=== PATIENT | male | born 1950 | race Caucasian/White ===

== ENCOUNTER 2022-03-03 07:21 | Outpatient (CLI) | payer MEDICARE, BC, SELFPAY ==
[2022-03-03 10:33] LABS: Albumin* 4.7 g/dL (3.3-5.0); Chloride* 106 mmol/L (96-114); Potassium* 4.1 mmol/L (3.6-5.1); Sodium* 139 mmol/L (135-149)
[2022-03-03 10:35] LABS: Aspartate Amino Transferase* 32 U/L (12-35); Carbon Dioxide* 25 mmol/L (20-32); Creatinine* 1.1 mg/dL (0.5-1.5); Estimated Glomerular Filt Rate 71 ml/min; Total Protein* 7.1 g/dL (6.0-8.3)
[2022-03-03 10:36] LABS: Alanine Aminotransferase* 36 U/L (4-50); Alkaline Phosphatase* 69 U/L (40-150); Blood Urea Nitrogen* 17 mg/dL (7-30); Calcium* 9.4 mg/dL (8.4-10.6); Glucose* 155 mg/dL (60-115); HDL Cholesterol* 41 mg/dL (>=40); Triglycerides* 202 mg/dL (40-149)
[2022-03-03 11:03] LABS: Creatinine Urine 273.1 mg/dL; PSA Screen* 0.48 ng/mL (0.10-4.00)
[2022-03-03 11:50] LABS: Microalbumin Creatinine Ratio 10 mg/g (0-30); Microalbumin Urine 4 mg/dL
[2022-03-04 18:56] LABS: Cholesterol* 152 mg/dL (90-199); LDL Cholesterol Calculated 71 mg/dL (<100)
== END 2022-03-03 07:22 | disposition home or self-care (01) ==
PROVIDERS: PCP Family Medicine; Visit Provider Family Medicine
DX: Z00.00 Encounter for general adult medical examination without abnormal findings (principal); E78.5 Hyperlipidemia, unspecified; I10 Essential (primary) hypertension; E11.9 Type 2 diabetes mellitus without complications; E66.9 Obesity, unspecified; Z12.5 Encounter for screening for malignant neoplasm of prostate
CPT/HCPCS: 80053; 80061; 82043; 82570; 84153

== ENCOUNTER 2023-03-03 07:57 | Outpatient (CLI) | payer MEDICARE, BC, SELFPAY ==
--- OUTSIDE RECORDS SUMMARY | 2023-03-10 13:21 | XMS_ITS | Continuity of Care Document ---
Author Name Unknown Organization [facility] Address [address] [place] [address] Phone Care Team Providers Care Surgical Dressing Maker Name Role Phone Renée Montgomery MD Unavailable Unavailable Procedures Procedure Date Office/outpatient visit,est, mod 2010 Advance Directives Directive Yes / No Effective Date File Name No Information Encounters Encounter Description Practice Location Reason(s) For Visit Diagnoses Date Provider Providers Copied on Encounter [facility], [address], [place], [place], [id number], [place] tel:[phone] [facility] No Information Mehbod Amir. [facility] [place], [address] [place] [address], [id number], [place]. tel:[phone] Office/outpat ient visit,est, mod Z [facility] [place], [address] [place], [place] [address], [facility], tel:[phone] [facility] No Information Transfeldt Ensor. [facility] [place], [address] [place] [address], [address], [id number], [place]. tel:[phone] Referring Provider: Willem Gonzalez, [address], [address]. tel:[phone] Family History Family Member Type Diagnosis Age At Onset No Information Payers Payer name Insurance type Covered green party ID Authoriza tion(s) No Information Social History Type Description Quantity Date Captured Comments Sex Male Smoking Status No Information Chief Complaint And Reason For Visit No Information Reason For Referral Reason For Referral No Information History Of Present Illness Encounter Date Complaint History Of Prese nt Illness No Information Functional Status Date Functional Assessmen t No Information Instructions Date Instruction Additional Infor mation No Information Assessments Type Assessment Date No Information Patient Care Teams Name Effective Dates (start - stop) Status Members No Information
--- OUTSIDE RECORDS SUMMARY | 2023-03-10 13:21 | XMS_ITS | Clinical Summary ---
Author Name Unknown Organization [employer] [facility] Address [place], [place] [address] Care Team Providers Care Color Straining Bag Washer Name Role Phone Santos Seth MD Primary Care Provider [phone] Allergies Active Allergy Reactions Criticality Noted Date Comments Penicillins 07/23/2006 Medications Medication Sig Dispensed Refills Start Date End Date Status ALEVE 220 MG TAB take 1 tablet (220 mg) by oral route every 12 hours as needed 0 07/23/2006 Active GLUCOSAMINE-CHONDROIT IN 500 MG-400 MG CAP 0 07/27/2007 Acti ve ACETAMINOPHEN 325 MG TAB take 1 tablet (650 mg) by oral route every 8 hours as needed 0 07/27/2007 Active ASPIRIN 81 MG TAB, DELAYED RELEASE take 1 tablet (81 mg) by oral route once daily 0 07/27/2007 Active NEURONTIN 300 MG CAP take 1 capsule (300 mg) by oral route qhs prn 30 3 07/27/2007 Active simvastatin (ZOCOR) 20 mg tablet Take 1 tablet by mouth at bedtime. 0 02/19/2010 Active multivitamin (MVI) tablet Take 1 tablet by mouth once daily. 0 07/20/2016 Active traMADol (ULTRAM) 50 mg tabletIndications:Cer vical radicular pain Take 1 tablet by mouth every 6 hours if needed for Pain. 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 07/23/2006 Immunizations Name Administration Dates Next Due AMB INFLUENZA IIV3 (AGE 65+ YRS) PF (Flu Clinic Only) 12/20/2018 AMB Influenza, IIV3 (Age >=3 years)(Flu Clinic Only) 12/16/2011,12/22/2010,12/26/2009,2008,01/03/2008 AMB Influenza, IIV4 PF (=>6 mos Flulaval,Fluzone Fluarix)(Flu Clinic Only) 12/13/2014,12/13/2013 Amb Influenza, Inact (High-d ose) (Flu Clinic Only) 12/09/2015 Amb Influenza, Inactivated A IIV4 (Age 65+ Years) Preserv Free 11/15/2019 Influenza, IIV3 (Age >=3 years) 12/15/2012,01/06 Influenza, Inactivated AIIV4 (Age 65+ Years) Preserv Free 12/25/2020 Influenza, Inactivated IIV3 (Age 65+ Years) Preserv Free 12/13/2017,12/08/2016 Td (Age >=7 Years) 03/12/2005 Family History Medical History Relation Name Comments Heart Disease Brother x 2 Diabetes Father ? Heart Disease Father [place] age 64 Diabetes Mother Relation Name Status Comments Brother Father (Age 87) Mother (Age 87) Social History Tobacco Use Types Packs/Day Years Used Date Smoking Tobacco: Former Cigarettes Q uit: 03/01/1999 Smokeless Tobacco: Never Tobacco Cessation:Counseling Given: Yes Alcohol Use Standard Drinks/Week Comments Yes 5 (1 standard drink = 0.6 oz pur e alcohol) wine Sex and Gender Information Value Date Recorded Sex Assigned at Not on file Gender Identity Not on file Sexual Orientation Not on file Obstetrics History Last Filed Vital Signs Vital Sign Reading Time Taken Comments Blood Pressure 139/76 07/20/2016 7:42 AM CDT Pulse 63 07/20/2016 7:42 AM CDT Temperature 36.4 ??C (97.5 ??F) 07/20/2016 7:42 AM CD T Respiratory Rate - - Oxygen Saturation 95% 07/20/2016 7:42 AM CDT Inhaled Oxygen Concentration - - Weight 103.9 kg (229 lb) 07/20/2016 7:42 AM CDT Height - - Body Mass Index - - Plan of Treatment Health Maintenance Due Date Last Done Comments Tdap 02/12/1960 Depression screening for age 12+ 1961 BMI (ht and wt on same day) for age 18+ 1967 Hepatitis C screening for ag e 18-79 1967 Colonoscopy through age 75 1994 Lipids for age 45-75 1994 Zoster (shingles) series for age 50+ (1 of 2) 1999 Medicare Wellness for age 65+ 2014 Pneumococcal series for age 65+ (1 of 1 - PCV) 2014 Tetanus booster 03/12/2015 03/12/2005 COVID-19 vaccine series (2022-24 season) 2022 12/26/2020, 05/31/2020, 05/01/2020 Influenza for age 65+ 10/30/2022 12/25/2020 , 11/15/2019, 12/20/2018, Additional history exists Care Teams Color Straining Bag Washer Relationship Specialty Start Date End Date Santos Seth MD [address] [place] [address] PCP - General Family Practice 07/20/16
== END 2023-03-03 07:58 | disposition home or self-care (01) ==
LOC: NFLDREF 03-10 13:10
PROVIDERS: PCP Family Medicine; Referring Provider Family Medicine; Visit Provider Family Medicine
DX: R73.03 Prediabetes (principal); E11.9 Type 2 diabetes mellitus without complications; I10 Essential (primary) hypertension; E66.9 Obesity, unspecified; E78.5 Hyperlipidemia, unspecified
CPT/HCPCS: 80053; 80061; 82043; 82570

== ENCOUNTER 2023-03-18 06:48 | Outpatient (CLI) | payer MEDICARE, BC, SELFPAY ==
--- OUTSIDE RECORDS SUMMARY | 2023-03-18 06:51 | XMS_ITS | Clinical Summary ---
Author Name Unknown Organization [employer] [facility] Address [place], [place] [address] Care Team Providers Care Release Of Information Clerk Name Role Phone Santos Seth MD Primary Care Provider [phone] Allergies Active Allergy Reactions Criticality Noted Date [...] 2 Diabetes Father ? Heart Disease Father [place] age 64 Diabetes Mother Relation Name Status [...] 11/15/2019, 12/20/2018, Additional history exists Care Teams Release Of Information Clerk Relationship Specialty Start Date End Date Santos Seth MD [address] [place] [address] PCP - General Family Practice 07/20/16
--- OUTSIDE RECORDS SUMMARY | 2023-03-18 06:51 | XMS_ITS | Continuity of Care Document ---
Author Name Unknown Organization [facility] Address [address] [place] [address] Phone Care Team Providers Care Orange Picker Name Role Phone Renée Montgomery MD Unavailable Unavailable Procedures Procedure Date Office/outpatient visit,est, mod 2010 Advance Directives Directive Yes / No Effective Date File Name No Information Encounters Encounter Description Practice Location Reason(s) For Visit Diagnoses Date Provider Providers Copied on Encounter [facility], [address], [place], [place], [id number], [place] tel:[phone] [facility] No Information Mehbod Amir. [facility] [place], [address] [place] [address], [id number], [place]. tel:[phone] Office/outpat ient visit,est, mod Z [facility] [place], [address] [place], [place] [address], [facility], tel:[phone] [facility] No Information Transfeldt Ensor. [facility] [place], [address] [place] [address], [address], [id number], [place]. tel:[phone] Referring Provider: Willem Kaur, [address], [place], [address]. tel:[phone] Family History Family Member Type Diagnosis Age [...]
--- NOTE | 2023-03-18 07:15 | CRLHL7_ITS ---
For Patients: As a result of the Cures Act, medical imaging exams and procedure reports are released immediately into your electronic medical record. You may view this report before your referring provider. If you have questions, please contact your health care provider. Examination: US abdominal aorta Indication: Abdominal aortic aneurysm screening. Technique: Guerrier scale and color Doppler images of the aorta and common iliac arteries are obtained. Comparison: None Findings: Proximal aorta: 2.0 x 2.3 cm Mid aorta: 1.5 x 2.3 cm Distal aorta: 1.6 x 2.0 cm Right common iliac artery: 1.1 x 1.6 cm Left common iliac artery: 1.0 x 1.5 cm Impression: No abdominal aortic aneurysm. Dictated by Jose Rodriguez MD @ 03/18/2023 9:11:05 AM (Electronically Signed)
== END 2023-03-18 06:49 | disposition home or self-care (01) ==
LOC: US 06:50
PROVIDERS: PCP Family Medicine; Visit Provider Family Medicine
DX: Z13.6 Encounter for screening for cardiovascular disorders (principal)
CPT/HCPCS: 76706

== ENCOUNTER 2023-06-07 08:23 | Outpatient (CLI) | payer MEDICARE, BC, SELFPAY ==
--- OUTSIDE RECORDS SUMMARY | 2023-06-15 07:20 | XMS_ITS | Clinical Summary ---
Author Name Unknown Organization [employer] [facility] Address [place], [place] [address] Care Team Providers Care Legal Researcher Name Role Phone Santos Seth MD Primary Care Provider [phone] Allergies Active Allergy Reactions Criticality Noted Date [...] 2 Diabetes Father ? Heart Disease Father [place] age 64 Diabetes Mother Relation Name Status [...] 12/26/2020, 05/31/2020, 05/01/2020 Influenza for age 65+ 10/31/2023 12/25/2020 , 11/15/2019, 12/20/2018, Additional history exists Care Teams Legal Researcher Relationship Specialty Start Date End Date Santos Seth MD [address] [place] [address] PCP - General Family Practice 07/20/16
--- OUTSIDE RECORDS SUMMARY | 2023-06-15 07:20 | XMS_ITS | Continuity of Care Document ---
Author Name Unknown Organization [facility] Address [address] [place] [address] Phone Care Team Providers Care Wireline Operator Name Role Phone Renée Montgomery MD Unavailable Unavailable Procedures Procedure Date Office/outpatient visit,est, mod 2010 Advance Directives Directive Yes / No Effective Date File Name No Information Encounters Encounter Description Practice Location Reason(s) For Visit Diagnoses Date Provider Providers Copied on Encounter [facility], [address], [place], [place], [id number], [place] tel:[phone] [facility] No Information Mehbod Amir. [facility] [place], [address] [place] [address], [id number], [place]. tel:[phone] Office/outpat ient visit,est, mod Z [facility] [place], [address] [place], [place] [address], [facility], tel:[phone] [facility] No Information Transfeldt Ensor. [facility] [place], [address] [place] [address], [address], [id number], [place]. tel:[phone] Referring Provider: Willem Kaur, [address], [place], [address]. tel:[phone] Family History Family Member Type Diagnosis Age At Onset No Information Payers Payer name Insurance type Covered republican ID Authoriza tion(s) No Information Social History [...]
== END 2023-06-07 08:24 | disposition home or self-care (01) ==
LOC: NFLDREF 06-15 07:19
PROVIDERS: PCP Family Medicine; Referring Provider Family Medicine; Visit Provider Family Medicine
DX: I10 Essential (primary) hypertension (principal)
CPT/HCPCS: 80048

== ENCOUNTER 2023-09-13 12:23 | Outpatient (REF) | payer MEDICARE, BC, SELFPAY ==
--- OUTSIDE RECORDS SUMMARY | 2023-09-13 12:26 | XMS_ITS | Clinical Summary ---
Author Organization [employer] [facility] Address [place], [place] [address] Care Team Providers Care Retoucher Photoengraving Name Role Phone Santos Seth MD Primary Care Provider [phone] Allergies Active Allergy Reactions Criticality Noted Date [...] 2 Diabetes Father ? Heart Disease Father [place] age 64 Diabetes Mother Relation Name Status [...] 11/15/2019, 12/20/2018, Additional history exists Care Teams Retoucher Photoengraving Relationship Specialty Start Date End Date Santos Seth MD [address] [place] [address] PCP - General Family Practice 07/20/16
--- OUTSIDE RECORDS SUMMARY | 2023-09-13 12:26 | XMS_ITS | Continuity of Care Document ---
Author Organization [facility] Address [address] [place] [address] Phone Care Team Providers Care Assembler Brazer Name Role Phone Ulises HERNANDEZ, Renée Unavailable Unavailable Procedures Procedure Date Office/outpatient visit,est, mod 2010 Advance Directives Directive Yes / No Effective Date File Name No Information Encounters Encounter Description Practice Location Reason(s) For Visit Diagnoses Date Provider Providers Copied on Encounter [facility], [address], [place], [place], [id number], [place] tel:[phone] [facility] No Information Mehbod Amir. [facility] [place], [address] [place] [address], [id number], [place]. tel:[phone] Office/outpat ient visit,est, mod Z [facility] [place], [address] [place], [place] [address], [facility], tel:[phone] [facility] No Information Transfeldt Ensor. [facility] [place], [address] [place] [address], [facility] [address], [place], [id number], [place]. tel:[phone] Referring Provider: Willem Kaur, [address], [place], [address]. tel:[phone] Family History Family Member Type Diagnosis Age At Onset No Information Payers Payer name Insurance type Covered alliance party ID Authoriza tion(s) No Information Social [...]
[2023-09-13 14:25] LABS: Vitamin B12* 493 pg/mL (243-894)
== END 2023-09-13 12:24 | disposition home or self-care (01) ==
LOC: NPINS 12:23
PROVIDERS: PCP Family Medicine; Visit Provider Psychiatry & Neurology Neurology
DX: G64 Other disorders of peripheral nervous system (principal); M54.12 Radiculopathy, cervical region; G56.22 Lesion of ulnar nerve, left upper limb; G56.03 Carpal tunnel syndrome, bilateral upper limbs; E78.5 Hyperlipidemia, unspecified
CPT/HCPCS: 80061; 82607; 84207; 84450; 84460; 86334

== ENCOUNTER 2023-09-22 09:29 | Outpatient (CLI) | payer MEDICARE, BC, SELFPAY ==
--- OUTSIDE RECORDS SUMMARY | 2023-09-24 09:36 | XMS_ITS | Continuity of Care Document ---
Author Organization [facility] Address [address] [place] [address] Phone Care Team Providers Care Desktop Administrator Name Role Phone Ulises HERNANDEZ, Renée Unavailable Unavailable Procedures Procedure Date Office/outpatient visit,est, mod 2010 Advance Directives Directive Yes / No Effective Date File Name No Information Encounters Encounter Description Practice Location Reason(s) For Visit Diagnoses Date Provider Providers Copied on Encounter [facility], [address], [place], [place], [id number], [place] tel:[phone] [facility] No Information Mehbod Amir. [facility] [place], [address] [place] [address], [id number], [place]. tel:[phone] Office/outpat ient visit,est, mod Z [facility] [place], [address] [place], [place] [address], [facility], tel:[phone] [facility] No Information Transfeldt Ensor. [facility] [place], [address] [place] [address], [facility] [address], [place], [id number], [place]. tel:[phone] Referring Provider: Willem Kaur, [address], [place], [address]. tel:[phone] Family History Family Member Type Diagnosis Age [...]
--- OUTSIDE RECORDS SUMMARY | 2023-09-24 09:36 | XMS_ITS | Clinical Summary ---
Author Organization [employer] [facility] [facility] Address [place], [place] [address] Care Team Providers Care Embosser Apprentice Name Role Phone Santos Seth MD Primary Care Provider [phone] Allergies Active Allergy Reactions Criticality Noted Date [...] 11/15/2019, 12/20/2018, Additional history exists Care Teams Embosser Apprentice Relationship Specialty Start Date End Date Santos Seth MD [address] [place] [address] PCP - General Family Practice 07/20/16
== END 2023-09-22 09:30 | disposition home or self-care (01) ==
LOC: NFLDREF 09-24 09:34
PROVIDERS: PCP Family Medicine; Referring Provider Family Medicine; Visit Provider Family Medicine
DX: R30.0 Dysuria (principal); N39.0 Urinary tract infection, site not specified
CPT/HCPCS: 87086

== ENCOUNTER 2023-12-01 13:43 | Outpatient (CLI) | payer MEDICARE, BC, SELFPAY ==
--- OUTSIDE RECORDS SUMMARY | 2023-12-02 08:32 | XMS_ITS | Continuity of Care Document ---
Author Organization [facility] Address [address] [place] [address] Phone Care Team Providers Care Job Site Supervisor Name Role Phone Ulises HERNANDEZ, Renée Unavailable Unavailable Procedures Procedure Date Office/outpatient visit,est, mod 2010 Advance Directives Directive Yes / No Effective Date File Name No Information Encounters Encounter Description Practice Location Reason(s) For Visit Diagnoses Date Provider Providers Copied on Encounter [facility], [address], [place], [place], [id number], [place] tel:[phone] [facility] No Information Mehbod Amir. [facility] [place], [address] [place] [address], [id number], [place]. tel:[phone] Office/outpat ient visit,est, mod Z [facility] [place], [address] [place], [place] [address], [facility], tel:[phone] [facility] No Information Transfeldt Ensor. [facility] [place], [address] [place] [address], [facility] [address], [place], [id number], [place]. tel:[phone] Referring Provider: Willem Kaur, [address], [place], [address]. tel:[phone] Family History Family Member Type Diagnosis Age [...]
--- OUTSIDE RECORDS SUMMARY | 2023-12-02 08:32 | XMS_ITS | Clinical Summary ---
Author Organization [facility] Address [place], [place] [address] Care Team Providers Care Eggs Inspector Name Role Phone Santos Seth MD Primary Care Provider [phone] Allergies Active Allergy Reactions Criticality Noted Date [...] 2 Diabetes Father ? Heart Disease Father [place] age 64 Diabetes Mother Relation Name Status [...] Tetanus booster 03/12/2015 03/12/2005 COVID-19 vaccine series ( season) 2023 12/26/2020, 05/31/2020, 05/01/2020 Influenza for age 65+ 10/31/2023 12/25/2020 , 11/15/2019, 12/20/2018, Additional history exists Care Teams Eggs Inspector Relationship Specialty Start Date End Date Santos Seth MD [address] [place] [address] PCP - General Family Practice 07/20/16
== END 2023-12-01 13:44 | disposition home or self-care (01) ==
LOC: NFLDREF 12-02 08:30
PROVIDERS: PCP Family Medicine; Referring Provider Family Medicine; Visit Provider Family Medicine
DX: R30.0 Dysuria (principal); N41.0 Acute prostatitis; N39.0 Urinary tract infection, site not specified
CPT/HCPCS: 87086

== ENCOUNTER 2024-03-06 07:40 | Outpatient (CLI) | payer MEDICARE, BC, SELFPAY | END 2024-03-06 07:41 | disposition home or self-care (01) | LOC: NFLDREF 03-07 02:45 | PROVIDERS: PCP Family Medicine; Referring Provider Family Medicine; Visit Provider Family Medicine | DX: E78.5 Hyperlipidemia, unspecified (principal); Z12.5 Encounter for screening for malignant neoplasm of prostate | CPT/HCPCS: 80053; 80061; G0103 ==

== ENCOUNTER 2024-03-14 13:14 | Outpatient (CLI) | payer MEDICARE, BC, SELFPAY | END 2024-03-14 13:15 | disposition home or self-care (01) | LOC: NFLDREF 13:14 | PROVIDERS: PCP Family Medicine; Visit Provider Family Medicine | DX: E11.9 Type 2 diabetes mellitus without complications (principal) | CPT/HCPCS: 82043; 82570 ==